=== PATIENT | female | born 2000 | race African-American/Black ===

== ENCOUNTER 2019-05-09 18:46 | Emergency (ER) | payer OTHER ==
[2019-05-09 19:16] LABS: Pregnancy Test - Urine (BHCG) POSITIVE (Negative); Pregu Control Background? CLEAR/WHITE (CLR/WHITE); Pregu Control Bar Appear? YES (CONTROL BAR); Specific Gravity 1.036 (1.002-1.036)
[2019-05-09 19:20] LABS: Bacteria/HPF None Seen HPF (None Seen); Bilirubin Negative (Negative); Blood, Urine Negative (Negative); Clarity Clear (Clear); Glucose, Urine (Dipstick) Normal (Negative); Leukocyte 250 Leu/uL (Negative); Mucous/LPF 1+ LPF (<2+); Nitrite Negative (Negative); Protein, Urine (Dipstick) 30 mg/dL (Neg-Trace); WBC/HPF 21-50 HPF (0-3)
== END 2019-05-09 19:48 | disposition home or self-care (01) ==
LOC: ERS 18:46
DX: O99.89 Other specified diseases and conditions complicating pregnancy, childbirth and the puerperium (principal); R11.0 Nausea; R53.83 Other fatigue; Z3A.01 Less than 8 weeks gestation of pregnancy
CPT/HCPCS: 81003; 81015; 81025; 99283